=== PATIENT | male | born 1955 | race Caucasian/White ===

== ENCOUNTER 2018-09-18 10:58 | Emergency (ER) | payer BC ==
[~2018-09-18] VITALS: Ht 165.1 cm; Wt 77.4 kg
[2018-09-18] MEDS ORDERED: LIDOcaine 1.5% w/epinephrine 1:200,000 5ml ampul IJ ONE (12:25)
[2018-09-18] MEDS ORDERED: LIDOcaine 1% w/epiNEPHrine 1:200,000 30ml vial IJ ONE (12:50)
[2018-09-18] MEDS ORDERED: ACET-3068 PO (14:32)
[2018-09-18] MEDS ORDERED: AMOX-422 PO (14:32)
[2018-09-18 14:45] VITALS: BP 144/99
[2018-09-21] MEDS ORDERED: AMOX-580 PO (10:09)
[2018-09-21] MEDS ORDERED: SULF1TAB49 PO (10:09)
== END 2018-09-18 14:54 | disposition home or self-care (01) ==
LOC: ER 10:58
DX: S51.812A Laceration without foreign body of left forearm, initial encounter (principal); F17.200 Nicotine dependence, unspecified, uncomplicated; Z79.899 Other long term (current) drug therapy; W54.0XXA Bitten by dog, initial encounter; Y93.89 Activity, other specified; Y92.89 Other specified places as the place of occurrence of the external cause; Y99.8 Other external cause status
CPT/HCPCS: 12002; 99283; J3490

== ENCOUNTER → 2018-09-21 | Emergency (ER) | payer BC ==
[~2018-09-21] VITALS: Ht 165.1 cm; Wt 76.7 kg
[~2018-09-21] MED LIST: ACET-3068 PO; AMOX-422 PO; AMOX-580 PO; CefTRIAXone 1000mg IM Kit (w/lidocaine diluent) IM ONE; SULF1TAB49 PO
[2018-09-21 09:31] VITALS: BP 162/96
== END | disposition home or self-care (01) ==
LOC: ER 09:23
DX: S51.852D Open bite of left forearm, subsequent encounter (principal); L03.114 Cellulitis of left upper limb; W54.0XXD Bitten by dog, subsequent encounter
CPT/HCPCS: 96372; 99283; J0696